=== PATIENT | male | born 1960 | race Hispanic/Latino ===

== ENCOUNTER → 2021-02-04 11:01 | Outpatient (CLI) | payer OTHER, SELFPAY ==
--- NOTE | 2021-02-04 11:06 | DI.RAD.S_ITS ---
PROCEDURE: FL HIP INJECTION MR/CT LT INDICATIONS: STRAIN OF ADDUCTOR MUSC/FASC/TEND LEFT THIGH TECHNIQUE: The indications, alternatives, benefits, risks, and complications of the procedure were explained to the patient. Written informed consent was obtained and placed in the chart. The hip was examined fluoroscopically with the legs fixed in slight internal rotation, and a site for needle placement chosen for entry into the hip joint from an anterior approach. Care was taken to locate the common femoral artery and vein beforehand. The skin was prepped and draped in a sterile fashion, and 1% Lidocaine infiltrated from skin down to joint capsule. A spinal needle was inserted into the joint, and a small amount of iodinated contrast media injected to confirm intra-articular placement of the needle tip. This was followed by approximately 10 mL dilute solution of a gadolinium containing MR contrast agent. The needle was removed and a dressing was applied. The patient was given postprocedural instructions and sent to the MR suite for imaging. COMPARISON: None. FINDINGS: A single fluoroscopic spot image demonstrates intra-articular location of injected iodinated contrast. IMPRESSION: Successful fluoroscopically guided administration of dilute Gadolinium solution into the hip joint for MR arthrogram. Dictated by: Damian Baez M.D. on 02/04/2021 at 17:25 Approved by: Damian Baez M.D. on 02/04/2021 at 17:25
--- NOTE | 2021-02-04 11:07 | DI.MRI.S_ITS ---
PROCEDURE: MR HIP LT W CON INDICATIONS: STRAIN OF ADDUCTOR MUSC/FASC/TEND LEFT THIGH TECHNIQUE: After the administration of 10 mL of dilute intra-articular Gadolinium contrast, coronal STIR of the bony pelvis; coronal and oblique axial T1 spin echo with fat saturation, axial T2 fast spin echo with fat saturation, sagittal T1 spin echo with and without fat saturation of the involved hip. COMPARISON: None. FINDINGS: Bones and joints: No fracture identified. Sacroiliac joints are unremarkable in signal intensity. There is lower lumbar spondylosis and facet arthropathy. No pathologic hip joint effusion. No evidence of osteonecrosis. Tendons and ligaments: Mild gluteus medius and minimus insertional tendinopathy. The appearance is symmetric to the contralateral side. Proximal iliotibial band intact. Iliopsoas tendon intact. [id number] hamstring origin tendinopathy and thickening, technically age indeterminate. The straight and reflected heads of the rectus femoris muscle origin appear intact Ligamentum teres appears intact where visualized. Labrum: Ill-defined anterosuperior macerated labral tear versus advanced degeneration. There is adjacent partial-thickness chondral loss, and extensive acetabular spurring and sclerosis. The alpha angle of the femur is within normal limits at less than 55 degrees. Soft tissues: There is mild T2 hyperintensity involving the left hip adductor compartment musculature for example image 22/2. Quadratus femoris muscle normal. Proximal sciatic neurovascular bundle appears normal adjacent to the hamstring tendons. No free pelvic fluid. Bladder normal. Genitourinary structures and bowel loops appear normal where visualized. IMPRESSION: Anterosuperior labral tear and or advanced degeneration, with ill-defined appearance. Mild partial-thickness adjacent chondral loss, and acetabular spurring and sclerosis. Mild to moderate age-indeterminate hamstring origin tendinopathy. The left hip adductor musculature suboptimally evaluated secondary to excluded on the axial pulse sequences although on large [id number] coronal pulse sequences, asymmetric left T2 hyperintense signal changes involving the adductor compartment muscles suggestive of low-grade strain. Dictated by: Damian Baez M.D. on 02/04/2021 at 13:01 Approved by: Damian Baez M.D. on 02/04/2021 at 13:10
== END ==
PROVIDERS: PCP Preventive Medicine Occupational Medicine; Referring Provider Preventive Medicine Occupational Medicine; Visit Provider Preventive Medicine Occupational Medicine
DX: S76.212A Strain of adductor muscle, fascia and tendon of left thigh, initial encounter (principal); X58.XXXA Exposure to other specified factors, initial encounter
CPT/HCPCS: 27093; 73722; 77002